=== PATIENT | male | born 1975 | race African-American/Black ===

== ENCOUNTER 2017-04-03 15:39 | Emergency (ER) | payer OTHER ==
[~2017-04-03] VITALS: Ht 177.8 cm; Wt 83.9 kg
[~2017-04-03 15:39] MED LIST: HYDROCORTISONE3011 TP; MEDROLDOSEPACK PO
[2017-04-03 16:38] LABS: URINE BILIRUBIN NEGATIVE (Negative); URINE BLOOD NEGATIVE (Negative); URINE COLOR YELLOW; URINE GLUCOSE-RANDOM* NEGATIVE (Negative); URINE KETONES NEGATIVE (Negative); URINE LEUKOCYTES-REFLEX NEGATIVE (Negative); URINE PROTEIN (DIPSTICK) NEGATIVE (Negative); URINE UROBILINOGEN 0.2 E.U./dl (0.2-1.0)
[2017-04-03] MEDS ORDERED: IBUPROFEN 600600 M1 PO (17:31)
[2017-04-03] MEDS ORDERED: NORCO 5-325 TA1 EACH PO (17:33)
[2017-04-03 18:12] VITALS: BP 141/96
== END 2017-04-03 18:13 | disposition home or self-care (01) ==
LOC: ER 15:39
PROVIDERS: Physician Assistant
DX: N50.811 Right testicular pain (principal); K40.90 Unilateral inguinal hernia, without obstruction or gangrene, not specified as recurrent; F17.210 Nicotine dependence, cigarettes, uncomplicated; F10.99 Alcohol use, unspecified with unspecified alcohol-induced disorder; F15.10 Other stimulant abuse, uncomplicated